=== PATIENT | male | born 1995 | race African-American/Black ===

== ENCOUNTER 2017-03-03 14:10 | Emergency (ER) | payer OTHER ==
[2017-03-03 14:46] VITALS: BP 128/83
--- NOTE | 2017-03-03 14:51 | UC ---
UC General HPI - HPI Summary HPI Summary: Patient has hx of headaches on the left side of his head for the past few years , he is complaining of right leg and arm parathesia that comes and goes, does not currently have the pain, does have neck pain with extreme extension - History of Current Complaint Stated Complaint: MUSCLE ACHES Time Seen by Provider: 03/03/17 14:22 Hx Obtained From: Patient Onset/Duration: Sudden Onset, Lasting Days Timing: Constant Onset Severity: Mild Current Severity: Mild - Allergy/Home Medications Allergies/Adverse Reactions: Allergies Allergy/AdvReac Type Severity Reaction Status Date / Time No Known Allergies Allergy Verified 03/03/17 14:48 Home Medications: Home Medications Calcium Carbonate-Cholecalcife [Calcium 500 +D] 1 tab PO DAILY 03/03/17 [ History Confirmed 03/03/17] Psyllium [Metamucil] 0.52 gm PO DAILY 03/03/17 [History Confirmed 03/03/17] PMH/Surg Hx/FS Hx/Imm Hx - Family History Known Family History: Negative: Cardiac Disease, Hypertension Review of Systems Constitutional: Negative Skin: Negative Eyes: Negative ENT: Negative Respiratory: Negative Cardiovascular: Negative Gastrointestinal: Negative Genitourinary: Negative Motor: Negative Neurovascular: Other - tingling in arm and leg right side Musculoskeletal: Arthralgia, Other: - pain over c4 Neurological: Negative Psychological: Negative All Other Systems Reviewed And Are Negative: Yes Physical Exam Triage Information Reviewed: Yes Appearance: Well-Appearing, Well-Nourished, Pain Distress Vital Signs Reviewed: Yes Eye Exam: Normal ENT Exam: Normal Dental Exam: Normal Neck: Positive: Supple, No Lymphadenopathy, Other: - tender over c4 Respiratory Exam: Normal Cardiovascular Exam: Normal Cardiovascular: Positive: RRR, No Murmur, Pulses Normal Abdominal Exam: Normal Abdomen Description: Positive: Nontender, No Organomegaly, Soft Bowel Sounds: Positive: Present Musculoskeletal: Positive: Strength Intact, ROM Intact - painful with extreme extention Neurological Exam: Normal Neurological: Positive: Alert, Muscle Tone Normal Psychological Exam: Normal Skin Exam: Normal Course/Dx - Course Course Of Treatment: hx obtained, exam performed ,meds reviewed, xray obtained and is negative. Patient [place] town. Recommend follow up with PCP for headaches. as the symptoms are not currently present and have been lasting a few months - Differential Dx - Multi-Symptom Provider Diagnoses: parathesia, right leg and arm Discharge - Discharge Plan Condition: Stable Disposition: HOME Patient Education Materials: Paresthesia (ED) Additional Instructions: 1. heat and stretch the muscles of the neck and upper extremities 2. I recommend follow up with your doctor at home regarding the Headaches. 3. If you develop a increase in headaches, sudden onset headache or weakness in the extremities repor to ER immediately
--- NOTE | 2017-03-03 15:05 | RAD ---
HISTORY: Arm paresthesia COMPARISONS: None VIEWS: 3, Frontal, lateral, and open-mouth odontoid views of the cervical spine. FINDINGS: The cervical spine is visualized from the skull base through T1. ALIGNMENT: There is straightening of the normal cervical lordosis. VERTEBRAL BODIES: The odontoid process is intact. The atlantoaxial intervals are symmetric. JOINTS: There is no subluxation or dislocation. The facet joints are unremarkable. INTERVERTEBRAL DISCS: The intervertebral disc heights are normal. SOFT TISSUE: The prevertebral soft tissues are normal. OTHER: The skull base is normal. The lung apices are clear. IMPRESSION: STRAIGHTENING OF THE CERVICAL LORDOSIS
== END 2017-03-03 15:31 | disposition home or self-care (01) ==
LOC: UCCORT 14:10
DX: R20.2 Paresthesia of skin (principal)
CPT/HCPCS: 72040; 99201; G0463

== ENCOUNTER 2017-03-12 10:01 | Emergency (ER) | payer OTHER ==
[2017-03-12 10:19] VITALS: BP 137/82
[2017-03-12] MEDS ORDERED: cefTRIAXone VIAL(*) 250 MG VIAL IM ONE (10:43)
--- NOTE | 2017-03-12 10:55 | UC ---
General HPI - HPI Summary HPI Summary: 21 yo gentleman presents for evaluation / treatment of post-exposure body fluid. Had unprotected intercourse approx 2 weeks ago, with male, involving genitalia / oral. Last week c/o approx 2 days freq / urg / dysuria, self resolved. No problems since. No hematuria reported. No adenopathy, no swelling, no sores, no penile discharge, no new sore throat, no fever, no rash. - History of Current Complaint Chief Complaint: UCSTDScreening Stated Complaint: PERSONAL Time Seen by Provider: 03/12/17 10:24 Hx Obtained From: Patient - Allergy/Home Medications Allergies/Adverse Reactions: Allergies Allergy/AdvReac Type Severity Reaction Status Date / Time No Known Allergies Allergy Verified 03/12/17 10:15 PMH/Surg Hx/FS Hx/Imm Hx Previously Healthy: Yes - Surgical History Surgical History: None - Family History Known Family History: Negative: Cardiac Disease, Hypertension - Social History Alcohol Use: Rare Substance Use Type: Marijuana Smoking Status (MU): Never Smoked Tobacco Review of Systems Constitutional: Negative Skin: Negative Eyes: Negative ENT: Negative - see hpi Respiratory: Negative Cardiovascular: Negative Gastrointestinal: Negative Genitourinary: Negative - see hpi Motor: Negative Neurovascular: Negative Musculoskeletal: Negative Neurological: Negative Psychological: Negative All Other Systems Reviewed And Are Negative: Yes Physical Exam Triage Information Reviewed: Yes Appearance: Well-Appearing, Well-Nourished Vital Signs: Initial Vital Signs Temp 98 F 03/12/17 10:13 Pulse 74 03/12/17 10:13 Resp 16 03/12/17 10:13 BP 137/82 03/12/17 10:13 Pulse Ox 100 03/12/17 10:13 Vital Signs Reviewed: Yes Eye Exam: Normal ENT Exam: Normal ENT: Positive: Normal ENT inspection, Hearing grossly normal, Pharynx normal Neck exam: Normal Neck: Positive: Supple, Nontender, No Lymphadenopathy Respiratory Exam: Normal Respiratory: Positive: Chest non-tender, Lungs clear, Normal breath sounds, No respiratory distress Cardiovascular Exam: Normal Cardiovascular: Positive: RRR, No Murmur, Pulses Normal, Brisk Capillary Refill Abdominal Exam: Normal - no cvat Abdomen Description: Positive: Nontender, No Organomegaly, Soft, Other: - no abd tenderness no groin adenopathy normal male genitalia Musculoskeletal Exam: Normal - gait steady Neurological Exam: Normal - grossly normal nonfocal Psychological Exam: Normal - conversing easily and appropriately Skin Exam: Normal Course/Dx - Course Course Of Treatment: Mr. Riddle wants to be tested for "everything.". Reviewed that f/u retesting may be indicated. Will need to f/u with a pcp. [facility] [place] referral given at d/c. S/sx suspicious for urethrits, will rx rocephin / doxy ( pt reports that he will be able to take the full course). Seek medical attention for worse or new problems. Questions answered as posed to the best of my ability. - Differential Dx - Multi-Symptom Provider Diagnoses: body fluid exposure. urethritis Discharge - Discharge Plan Condition: Stable Disposition: HOME Prescriptions: DOXYcycline CAP(*) [DOXYcycline 100MG CAP(*)] 100 mg PO BID #20 cap Patient Education Materials: Nonspecific Urethritis in Men (ED), Body Substance Exposure (ED) Forms: *Work Release Referrals: [facility] [place] PHYSICIAN REFERRAL [Outside] Non Staff,Doctor [Primary Care Provider] - Additional Instructions: Avoid sexual relations until antibiotics complete and until you have reviewed your results with your doctor. Note - recent exposure to HIV, Hepatitis may not immediately be visible on blood work; as such, it is important to follow up with a primary care physician to discuss if / when recheck indicated. Please try to arrange follow up with a primary care provider, in the next couple weeks. Seek medical attention for any worse or new problems. Do not take calcium carbonate (stomach medication(s)) within 2 hours of taking doxycycline antibiotic.
[2017-03-12] MEDS ORDERED: Lidocaine 1% MPF* 2 ML VIAL ONE (11:04)
[2017-03-12 14:31] LABS: Manual Entry Verification BM; Rapid HIV INT CONT QC Line Present; Rapid HIV Kit Lot# F308002
[2017-03-12 14:52] LABS: Syphilis Index < 0.1 Index
--- NOTE | 2017-03-13 07:56 | ED ---
Progress - Progress Note Progress Note: HBSAB (+). CANNOT DIFFERENTIATE BETWEEN VACCINE IMMUNE RESPONSE OR INFECTION. MUST FOLLOW UP WITH PCP OR ID. THANKS CHINTAN Course/Dx - Course Course Of Treatment: Mr. Riddle wants to be tested for "everything.". Reviewed that f/u retesting may be indicated. Will need to f/u with a pcp. [facility] referral given at d/c. S/sx suspicious for urethrits, will rx rocephin / doxy ( pt reports that he will be able to take the full course). Seek medical attention for worse or new problems. Questions answered as posed to the best of my ability. - Diagnoses Provider Diagnoses: Screen for STD (sexually transmitted disease)
[2017-03-13 11:39] LABS: Herpes Simplex Virus I IgG AB Positive (Negative); Herpes Simplex Virus II IgG AB Negative (Negative)
== END 2017-03-12 11:33 | disposition home or self-care (01) ==
LOC: UCCORT 10:01
DX: Z77.21 Contact with and (suspected) exposure to potentially hazardous body fluids (principal); N34.2 Other urethritis
CPT/HCPCS: 36415; 86592; 86695; 86696; 86703; 86706; 86803; 87340; 87491; 87591; 96372; 99212; G0463; J0696

== ENCOUNTER 2017-05-31 12:26 | Emergency (ER) | payer OTHER ==
[2017-05-31 12:35] VITALS: BP 130/88
--- NOTE | 2017-05-31 12:39 | UC ---
General HPI - HPI Summary HPI Summary: possible exposure to HIV 3 months ago has had 2 negative HIV testing requesting to be tested again no symptoms today - History of Current Complaint Chief Complaint: UCSTDScreening Stated Complaint: PERSONAL Time Seen by Provider: 05/31/17 12:36 Hx Obtained From: Patient Onset/Duration: Gradual Onset, Lasting Weeks - 12 Timing: Constant Onset Severity: Mild Current Severity: Mild Associated Signs & Symptoms: Positive: Other - no symptoms - Allergy/Home Medications Allergies/Adverse Reactions: Allergies Allergy/AdvReac Type Severity Reaction Status Date / Time No Known Allergies Allergy Verified 05/31/17 12:35 PMH/Surg Hx/FS Hx/Imm Hx Previously Healthy: Yes - Surgical History Surgical History: None - Family History Known Family History: Negative: Cardiac Disease, Hypertension, Diabetes - Social History Alcohol Use: Rare Substance Use Type: None Smoking Status (MU): Never Smoked Tobacco - Immunization History Most Recent Influenza Vaccination: no Review of Systems Constitutional: Negative Skin: Negative Eyes: Negative ENT: Negative Respiratory: Negative Cardiovascular: Negative Gastrointestinal: Negative Genitourinary: Negative Motor: Negative Neurovascular: Negative Musculoskeletal: Negative Neurological: Negative Psychological: Negative Is Patient Immunocompromised?: No All Other Systems Reviewed And Are Negative: Yes Physical Exam Triage Information Reviewed: Yes Appearance: Well-Appearing, No Pain Distress, Well-Nourished Vital Signs: Initial Vital Signs Temp 98.6 F 05/31/17 12:32 Pulse 83 05/31/17 12:32 Resp 14 05/31/17 12:32 BP 130/88 05/31/17 12:32 Pulse Ox 100 05/31/17 12:32 Vital Signs Reviewed: Yes Eye Exam: Normal Eyes: Positive: Conjunctiva Clear ENT: Positive: Normal ENT inspection, Hearing grossly normal, Pharynx normal Neck: Positive: Supple, Nontender, No Lymphadenopathy Respiratory Exam: Normal Respiratory: Positive: Chest non-tender, Lungs clear, Normal breath sounds Cardiovascular: Positive: RRR, No Murmur, Pulses Normal Abdominal Exam: Normal Abdomen Description: Positive: Nontender, No Organomegaly, Soft Bowel Sounds: Positive: Present Course/Dx - Differential Dx - Multi-Symptom Provider Diagnoses: exposure to HIV Discharge - Discharge Plan Condition: Stable Disposition: HOME Patient Education Materials: Safe Sex (ED)
[2017-06-01 14:45] LABS: Rapid HIV INT CONT QC Line Present
[2017-06-01 14:46] LABS: Rapid HIV Kit Lot# H017003
--- NOTE | 2017-06-02 07:32 | ED ---
Progress - Progress Note Progress Note: call patient.hiv 1/2 (-). 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 Course/Dx - Diagnoses Provider Diagnoses: STD (male)
== END 2017-05-31 13:07 | disposition home or self-care (01) ==
LOC: UCCORT 12:26
DX: Z20.6 Contact with and (suspected) exposure to human immunodeficiency virus [HIV] (principal)
CPT/HCPCS: 36415; 86703; 99211; G0463